=== PATIENT | female | born 1960 | race Caucasian/White ===

== ENCOUNTER 2025-07-27 09:54 | Outpatient (AMB) | payer MEDICARE, SELFPAY ==
--- NOTE | 2025-07-27 10:12 | MHC.PC.OV ---
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 Is last menstrual period known: No Post menopausal: Yes Patient : No Allergies codine Adverse Reaction (Mild, Uncoded 07/27/25 10:13) Vomiting Medication List - Last Reviewed 07/27/25 by JANUSZ Ribera cetirizine (Aller-Luna) 10 mg PO DAILY PRN cholecalciferol (vitamin D3) 125 mcg PO DAILY cod liver oil 5 mL PO DAILY estradiol-norethindrone acet 0.5-0.1 mg 1 tab PO DAILY magnesium citrate 1,000 mg PO DAILY turmeric 1,950 mg PO vit B jmct-jaryd-pmlouop-inosi 400 mcg-20 mg- 50 mg (Super B-50 Complex) caps PO vitamin K2 120 mcg PO DAILY Tobacco use date assessed: 07/27/25 Fall risk assessment: 2 + Falls in past year Last assessed Fall Risk: 07/27/25 Dental Screening Dental Screen Date: 07/27/25 Did you have a dental visit in the last 12 months?: Yes Did you have a dental problem in the last 6 months where you did not have access to dental care?: Yes Was dental information given to patient?: No HPI [employer]-Annual Exam HPI Details New Patient? ?? Prior PCP:? No recent PCP in [facility] Last office visit/CPE:? > 1 yr Acute issue(s):? Difficulty concentrating. Pt concerned R knee & leg - Slipped while hiking. [place] in February b/L feet stiffness and numbness w/o paresthesias R shoulder pain Lat head of Triceps strain PMHx:? Hot Flashes SurgHx:? Tubal lig FHx:? Dad: DM Mom: HTN, Hypothyroid. mGM: Colon CA. pGF: Stomach CA. SocHx: Pt is a field sales consultant, nonsmoker, 1 beer a week. No drugs PFSH Medical History (Updated 07/27/25 @ 11:05 by Hal Galan) Difficulty concentrating Anxiety Sinusitis Surgical History (Updated 07/27/25 @ 10:18 by JANUSZ Ribera) H/O tubal ligation Family History (Updated 07/27/25 @ 10:20 by JANUSZ Ribera) Mother High blood pressure Thyroid disorder Father High blood pressure History of high cholesterol Diabetes Maternal Grandmother Colon cancer Maternal Grandfather Stomach cancer Social History Housing: House Patient Tobacco Use Status: Never used Tobacco e-Cigarette/Vaping Use: Never Used Second Hand Smoke Exposure: No service: No Current occupational status: employed Current occupation: self employed Current occupational exposures/hazards: No Cognitive needs: Yes (autism and adhd not dx but would like to be evaluated) Hearing needs: No Vision needs: Yes Questionnaire PHQ-9 Over the last 2 weeks, how often have you been bothered by any of the following problems? 1. Little interest or pleasure in doing things: several days 2. Feeling down, depressed, or hopeless: several days 3. Trouble falling or staying asleep, or sleeping too much: several days 4. Feeling tired or having little energy: several days 5. Poor appetite or overeating: not at all 6. Feeling bad about yourself - or that you are a failure or have let yourself or your family down: not at all 7. Trouble concentrating on things, such as reading the newspaper or watching television: several days 8. Moving or speaking so slowly that other people could have noticed. Or the opposite - being so fidgety or restless that you have been moving around a lot more than usual: not at all 9. Thoughts that you would be better off or of hurting yourself in some way: not at all Total score: 5 Depression Screening Interpretation: Negative Depression Screening Done: Yes 26817 - PHQ-9 Billing: Yes Source: Developed by Drs. Fabrizio Tenorio, Aydee Bach, Juan Snyder and colleagues, with an educational rajesh from [employer]. Thrive Questionnaire Date Thrive assessed: 07/20/25 I am a: Patient What is your living situation today?: I have a steady place to live Within the past 12 months, did the food you bought not last and you didn't have the money to get more?: Never true Within the past 12 months, did you worry whether your food would run out before you got money to buy more?: Never true Do you have trouble paying for medicines?: No Do you have trouble getting transportation to medical appointments?: No Do you have trouble paying your heating and electricity bill?: No Do you have trouble taking care of your child, family member or friend?: No Do you have trouble with day-to-day activities such as bathing, preparing meals, shopping, managing finances, etc.?: No Are you currently unemployed and looking for a job?: No Are you interested in more education?: No Please select the resources that you would like help with: None Currently or been in a relationship where the following occur: No concerns reported THRIVE Score: 0 AUDIT C Alcohol Use Questionnaire (AUDIT-C) 1. How often do you have a drink containing alcohol?: 2-4 times a month 2. How many drinks containing alcohol do you have on a typical day when you are drinking?: 1 or 2 3. How often do you have six or more drinks on one occasion?: Never Total Score: 2 Score Reviewed/Action Taken: Yes TASHI-7 AMB Questionnaire TASHI-7 Date TASHI - 7 assessed: 07/27/25 Feeling nervous, anxious, or on edge: 3 = Nearly every day Not being able to stop or control worryin = Nearly every day Worrying too much about different things: 3 = Nearly every day Trouble relaxin = Nearly every day Being so restless that it is hard to sit still: 3 = Nearly every day Becoming easily annoyed or irritable: 1 = Several days Feeling afraid as if something awful might happen: 3 = Nearly every day Total TASHI-7 score (0-4 normal; 5-9 mild; 10-14 moderate; 15-21 severe): 19 Source: Developed by Drs. Fabrizio Tenorio, Aydee Bach, Juan Snyder and colleagues, with an educational rajesh from [employer]. TASHI-7 Assessment Billing TASHI-7 Assessment Tool: TASHI-7 Assessment 17525 Review of Systems Const Denies chills, Denies fatigue, Denies fever(s), Denies headache(s) and Denies weakness ENT Denies dizziness and Denies headache(s) Card Denies chest pain, Denies lightheadedness, Denies dyspnea and Denies other (Palpitations) Resp Denies cough, Denies dyspnea, Denies wheezing and Denies other ( shortness of breath) Musc Denies numbness and Denies tingling Neuro Denies dizziness, Denies headache(s), Denies numbness, Denies tingling, Denies paresthesias and Denies weakness Psych Denies anxiety and Denies depression Endo Denies fatigue Aller/Immun Denies wheezing Physical exam (Primary Care) Vital Signs: Last Vital Signs Temp 98.2 F 07/27/25 10:23 Pulse 60 07/27/25 10:23 Resp 16 07/27/25 10:23 BP 120/70 07/27/25 10:23 Pulse Ox 98 07/27/25 10:23 Oxygen Delivery Method Room Air 07/27/25 10:23 BMI result Body Mass Index 25.2 Tobacco/Smoking Status: Tobacco use Status Tobacco use date assessed 07/27/25 07/27/25 10:17 Patient Tobacco Use Status Never used Tobacco 07/27/25 10:17 e-Cigarette/Vaping Use Never Used 07/27/25 10:17 PHQ-9: PHQ-9 Score PHQ-9: Total score 5 07/27/25 10:25 Depression Screening Interpretation: Negative Thrive Assessment: Date of Thrive Assessment Date Thrive assessed 07/20/25 07/27/25 10:17 Currently or been in a relationship where the following occur: No concerns reported Const General: no acute distress and well developed Nutritional Appearance: well nourished Orientation/consciousness: patient oriented x3 HENMT Head: Yes normocephalic and Yes atraumatic Eyes General: appearance normal, both eyes and all related structures Pupils: Equal, round and reactive pupils present EOM: EOMs intact bilaterally Resp Effort & Inspection: normal respiratory effort Auscultation: clear to auscultation bilaterally Cardio Rate: regular rate Rhythm: regular rhythm Heart sounds: S1 normal heart sound present, S2 normal heart sound present, no gallops, no murmurs and no rubs Neuro General: patient oriented x3 and gait normal Cranial nerves: Yes Equal, round and reactive pupils present Psych Affect: normal affect Coding Level of Care Code New Pt Level 3 (92024) Diagnoses Difficulty concentrating R41.840 Right knee pain M25.561 Shoulder pain M25.519 Foot stiffness M25.676 Breast cancer screening by mammogram Z12.31 Neuropathy G62.9 Hot flashes R23.2 Laboratory exam ordered as part of routine general medical examination Z00.00 Additional Codes TASHI-7 Assessment Billing - TASHI-7 Assessment Tool: TASHI-7 Assessment 24258 ([id number]) PHQ-9 - 06962 - PHQ-9 Billing: Yes ([id number]) Assessment & Plan Assessment & Plan (1) Difficulty concentrating: Code(s): R41.840 - Attention and concentration deficit Category: Medical Plan: Patient notes difficulty concentrating and 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 She would like evaluation Referred to [facility] (2) Right knee pain: Code(s): M25.561 - Pain in right knee Category: Medical Plan: Mild right knee pain worse with certain movements and deep palpation over left MCL May have mild MCL strain No instability Seems to be improving and I recommended conservative care She will let me know if this worsens or is not improving (3) Shoulder pain: Code(s): M25.519 - Pain in unspecified shoulder Category: Medical Plan: Posterior shoulder pain at lateral head of triceps Start physical therapy (4) Foot stiffness: Code(s): M25.676 - Stiffness of unspecified foot, not elsewhere classified Category: Medical Plan: Bilateral foot stiffness She notes that she has had plantar fasciitis in the past and knows the exercises for this Continue exercises (5) Breast cancer screening by mammogram: Code(s): Z12.31 - Encounter for screening mammogram for malignant neoplasm of breast Category: Medical Plan: Managed by her media marketing manager (6) Neuropathy: Code(s): G62.9 - Polyneuropathy, unspecified Category: Medical Plan: Bilateral lower extremity numbness with positive neurofilament test Symptoms are quite symmetrical. She denies paresthesias. Checking lab work including B12, fasting blood sugar and A1c, syphilis and Lyme Father from complications of diabetes. Patient is unaware of any diagnosis of diabetes. If lab work is unrevealing, refer to Neurology for nerve conduction studies (7) Hot flashes: Code(s): R23.2 - Flushing Category: Medical Plan: Patient is on estradiol-norethindrone for hot flashes. Also takes this for other symptoms such as vaginal dryness. Also has strong family history of osteoporosis-mother Discussed with patient that the above medication can increase her risks of heart attacks, strokes and breast cancer. She says that overall she thinks her risk of these is low and that the benefits outweigh the risks. This medication may be prescribed by her media marketing manager. Given the above and strong family history of osteoporosis, would continue this medication if she needs me to assume management of it. However, I also did ask her to look up Veozah which is a non hormonal treatment for hot flashes and she could then decrease exposure to hormones. Could use estrogen creams for vaginal dryness and can use other interventions for osteoporosis. -checking bone density as she is due for this at age 65 (8) Laboratory exam ordered as part of routine general medical examination: Code(s): Z00.00 - Encounter for general adult medical examination without abnormal findings Category: Medical Plan: Check Labs Orders: Orders Complete Blood Count Auto Diff Today Z00.00 - Encounter for general adult medical examination without abnormal findings Microalbumin, Random (w Creat) Today I10 - Essential (primary) hypertension Lipid Panel Today Z00.00 - Encounter for general adult medical examination without abnormal findings UA CC w/rflx Micro + Cult Today Z00.00 - Encounter for general adult medical examination without abnormal findings XR DEXA axial skeleton Today M81.0 - Age-related osteoporosis without current pathological fracture Hemoglobin A1c Today R73.01 - Impaired fasting glucose PT Evaluation and Treatment Today M25.519 - Pain in unspecified shoulder Syphilis Screen Today G62.9 - Polyneuropathy, unspecified, Z11.3 - Encounter for screening for infections with a predominantly sexual mode of transmission Lyme IgG/IgM w/reflex to WB Today G62.9 - Polyneuropathy, unspecified Comprehensive [place]. Panel Fast Today Z00.00 - Encounter for general adult medical examination without abnormal findings TSH reflex Free T4 Today Z00.00 - Encounter for general adult medical examination without abnormal findings Vitamin D 25-OH Total Today E55.9 - Vitamin D deficiency, unspecified Vitamin B12 and Folate Today E53.8 - Deficiency of other specified B group vitamins Referrals Neuropsychiatry Referral R41.840 - Attention and concentration deficit
[2025-07-27 10:23] VITALS: BP 120/70; PULSE 60; RESP 16; TEMP 36.8; O2SAT 98; BMI 25.2
== END 2025-07-27 11:05 | disposition home or self-care (01) ==
PROVIDERS: PCP Family Medicine; Visit Provider Family Medicine
DX: R41.840 Attention and concentration deficit (principal); M25.561 Pain in right knee; M25.519 Pain in unspecified shoulder; M25.676 Stiffness of unspecified foot, not elsewhere classified; Z12.31 Encounter for screening mammogram for malignant neoplasm of breast; G62.9 Polyneuropathy, unspecified; R23.2 Flushing; Z00.00 Encounter for general adult medical examination without abnormal findings

== ENCOUNTER → 2025-07-27 09:54 | Outpatient (BNVA) | payer MEDICARE, SELFPAY | PROVIDERS: PCP Family Medicine; Visit Provider Family Medicine | DX: Z00.00 Encounter for general adult medical examination without abnormal findings (principal); R41.840 Attention and concentration deficit; M25.561 Pain in right knee; M25.519 Pain in unspecified shoulder; M25.676 Stiffness of unspecified foot, not elsewhere classified; G62.9 Polyneuropathy, unspecified; R23.2 Flushing; E55.9 Vitamin D deficiency, unspecified; E53.8 Deficiency of other specified B group vitamins | CPT/HCPCS: 96127; 99202 ==